=== PATIENT | male | born 2000 | race Asian ===

== ENCOUNTER → 2024-03-31 | Emergency (ER) | payer MEDICAID, OTHER ==
[~2024-03-31] VITALS: Ht 162.6 cm; Wt 80.5 kg
[~2024-03-31] MED LIST: METH-812 PO
[2024-03-31 19:45] VITALS: BP 147/88; PULSE 99; RESP 16; TEMP 98.2; O2SAT 98
== END | disposition home or self-care (01) ==
LOC: EMS 18:31
DX: S20.219A Contusion of unspecified front wall of thorax, initial encounter (principal); S80.212A Abrasion, left knee, initial encounter; V43.52XA Car driver injured in collision with other type car in traffic accident, initial encounter; Y93.89 Activity, other specified; Y92.410 Unspecified street and highway as the place of occurrence of the external cause; Y99.8 Other external cause status
CPT/HCPCS: 99283; Z7502